=== PATIENT | female | born 1955 | race Caucasian/White ===

== ENCOUNTER 2017-05-25 10:06 | Emergency (ER) | payer BC ==
[2017-05-25] MEDS ORDERED: Ketorolac 30 MG/ML SDV IM ONE (10:21)
[2017-05-25 10:22] VITALS: BP 152/88
[2017-05-25] MEDS ORDERED: Acyclovir 200 MG Cap PO ONE (10:24)
--- NOTE | 2017-05-25 10:30 | EDM.PDOC ---
ED HPI GENERAL MEDICAL PROBLEM - General Chief Complaint: Skin Complaint Stated Complaint: RASH Time Seen by Provider: 05/25/17 10:25 Source of Information: Reports: Patient History Limitations: Reports: No Limitations - History of Present Illness INITIAL COMMENTS - FREE TEXT/NARRATIVE: 61 yo female presents with rash to right lower torso. Rash began yesterdays at spine and radiates to midline of the abdomen. Red in nature with small blisters diffusely. Pt states rash is tingling and sometimes itchy but not constant. Was seen at clinic yesterday and started on cream for contact dermatitis. Also c/o pain to RLQ that has been waxing and waning for 1 week and mostly present with raising from lying position. denies pain with palpation. Onset Date: 05/24/17 Duration: Constant Location: Reports: Abdomen, Back Quality: Reports: Burning Severity: Moderate Improves with: Reports: None Worsens with: Reports: None Associated Symptoms: Reports: No Other Symptoms Treatments [employer]: Reports: Other Medication(s) (cream) Right Chest Pain Score (Numeric/FACES): 2 - Related Data Allergies Allergy/AdvReac Type Severity Reaction Status Date / Time ampicillin Allergy Cannot Verified 05/25/17 10:15 Remember Past Medical History HEENT History: Reports: None Cardiovascular History: Reports: None Respiratory History: Reports: None Genitourinary History: Reports: None Neurological History: Reports: None Psychiatric History: Reports: None Endocrine/Metabolic History: Reports: Hypothyroidism Hematologic History: Reports: None Immunologic History: Reports: None Oncologic (Cancer) History: Reports: None Dermatologic History: Reports: None Social & Family History - Tobacco Use Smoking Status *Q: Never Smoker - Recreational Drug Use Recreational Drug Use: No ED ROS GENERAL - Review of Systems Review Of Systems: ROS reveals no pertinent complaints other than HPI. ED EXAM, SKIN/RASH Exam: See Below Exam Limited By: No Limitations General Appearance: Alert, WD/WN, No Apparent Distress Eye Exam: Bilateral Eye: Normal Inspection Respiratory/Chest: No Respiratory Distress, Lungs Clear, Normal Breath Sounds, No Accessory Muscle Use, Chest Non-Tender Cardiovascular: Normal Peripheral Pulses, Regular Rate, Rhythm, No Edema, No Gallop, No JVD, No Murmur, No Rub GI/Abdominal: Normal Bowel Sounds, Soft, Non-Tender, No Organomegaly, No Distention, No Abnormal Bruit, No Mass Back Exam: Normal Inspection, Full Range of Motion, NT Extremities: Normal Inspection, Normal Range of Motion, Non-Tender, No Pedal Edema, Normal Capillary Refill Neurological: Alert, Oriented, Normal Cognition, Normal Gait Skin: Warm, Dry, Rash Location, Skin: Abdomen, Back Characteristics: Confluent, Vesicular, Erythematous Associated features: Warmth, Inflammation Lymphatic: No Adenopathy Course - Vital Signs Last Recorded V/S: Last Vital Signs Temp 97.5 F 05/25/17 10:16 Pulse 120 H 05/25/17 10:16 Resp 18 05/25/17 10:16 BP 152/88 H 05/25/17 10:16 Pulse Ox 100 05/25/17 10:16 - Orders/Labs/Meds Orders: Active Orders 24 hr Category Date Time Status Acyclovir [Zovirax] Med 05/25/17 10:24 Once 800 mg PO ONETIME ONE Meds: Medications Discontinued Medications Generic Name Dose Route Start Last Admin Trade Name Freq PRN Reason Stop Dose Admin Ketorolac Tromethamine 30 mg 05/25/17 10:21 Toradol IM 05/25/17 10:22 ONETIME ONE - Re-Assessments/Exams Free Text/Narrative Re-Assessment/Exam: 05/25/17 10:38 Acyclovir 800 mg #28 Naproxen 250mg Departure - Departure Time of Disposition: 10:32 Disposition: Home, Self-Care 01 Condition: Good Clinical Impression: Varicella zoster - Discharge Information Instructions: Shingles, [id number] Additional Instructions: Keep rash claen and dry. Try not to scratch the area and wash hands frequently. Take the anti-viral while awake every 4 hours. You do not have to wake up to take them. Try to limit interactions with children and women. Put warm compresses to lower abdomen as needed for the abdominal pain, you may need to get evaluated for adhesions or ovarian cyst due to symptoms. Return for any worsening symptoms. Follow up with your PCP or in clinic as needed. - My Orders Last 24 Hours: My Active Orders 05/25/17 10:24 Acyclovir [Zovirax] 800 mg PO ONETIME ONE - Assessment/Plan Last 24 Hours: My Active Orders 05/25/17 10:24 Acyclovir [Zovirax] 800 mg PO ONETIME ONE
== END 2017-05-25 10:48 | disposition home or self-care (01) ==
LOC: DL.ED 10:06
DX: B01.9 Varicella without complication (principal); E03.9 Hypothyroidism, unspecified; Z88.1 Allergy status to other antibiotic agents
CPT/HCPCS: 96372; 99282; A9270; J1885